=== PATIENT | male | born 1955 | race Caucasian/White ===

== ENCOUNTER 2020-06-20 00:36 | Emergency (ER) | payer MEDICAID, OTHER ==
[~2020-06-20] VITALS: Ht 193 cm; Wt 81.6 kg
[2020-06-20] MEDS ORDERED: OLANZAPINE 5 MG TABLET ONE (01:18)
--- NOTE | 2020-06-20 01:24 | NUR ---
PT AAOX4. AMBULATORY WITH STEADY GAIT. BIBSELF C/O SI WITH PLAN TO OVERDOSE ON MED. PT DENIES HI. PLACED ON MONITOR AND PULSE OX. VSS. AT BEDSIDE FOR EVAL. AWAITING ORDERS. PT PLACED IN GOWN, ON MONITOR, AND PULSE OX. BELONINGS PALCED IN LOCKER. SITTER AT BEDSIDE.
[2020-06-20] MEDS ORDERED: OLANZAPINE 5 MG TABLET PO ONE (01:30)
[2020-06-20 01:45] LABS: BASOPHILS # (AUTO) 0.1 /CMM (0.0-0.2); EOSINOPHILS % (AUTO) 1.9 % (0.0-6.0); HEMATOCRIT 44 % (39-51); HEMOGLOBIN 14.4 g/dL (13.5-17.5); LYMPHOCYTES # (AUTO) 2.3 /CMM (0.8-4.8); LYMPHOCYTES % (AUTO) 17.6 % (20.0-44.0); MEAN CORPUSCULAR HGB CONC 33 g/dl (31.0-36.0); MEAN CORPUSCULAR VOLUME 85 fL (80-96); MONOCYTES # (AUTO) 1.3 /CMM (0.1-1.30); MONOCYTES % (AUTO) 9.5 % (2.0-12.0); NEUTROPHILS # (AUTO) 9.3 /CMM (1.8-8.9); PLATELET COUNT (AUTO) 347 /CMM (150-450); RED BLOOD CELL COUNT(AUTO) 5.15 MIL/uL (4.5-6.0); WHITE BLOOD COUNT (AUTO) 13.3 K/uL (4.3-11.0)
[2020-06-20 01:50] LABS: APPEARANCE,URINE Clear (CLEAR); BILIRUBIN,URINE Negative (NEGATIVE); BLOOD, URINE Trace-intact Ery/uL (NEGATIVE); COLOR,URINE Yellow (YELLOW); KETONES,URINE Negative (NEGATIVE); LEUKOCYTE ESTERASE ,URINE Negative (NEGATIVE); NITRITE, URINE Negative (NEGATIVE); PROTEIN,URINE Negative (NEGATIVE); UGLUCOSE Negative (NEGATIVE); UROBILINOGEN,URINE 0.2 EU/dL (0.2)
[2020-06-20 01:52] LABS: CALCIUM, SERUM 9.2 mg/dL (8.5-10.1); CARBON DIOXIDE 29 mmol/L (21-32); CHLORIDE 103 mmol/L (98-107); GLUCOSE 96 mg/dL (74-106); POTASSIUM 4.5 mmol/L (3.5-5.1); SODIUM SERUM 137 mmol/L (136-145); UREA NITROGEN, BLOOD 21 mg/dL (7-18)
[2020-06-20 01:57] LABS: ALANINE AMINOTRANSFERASE 32 U/L (12-78); ALBUMIN 3.6 g/dL (3.4-5.0); ALCOHOL, BLOOD < 3 mg/dL (0-0); ALKALINE PHOSPHATASE 101 U/L (46-116); ASPARTATE AMINOTRANSFERASE 22 U/L (15-37); BILIRUBIN,DIRECT 0.1 mg/dL (0.0-0.2); BILIRUBIN,TOTAL 0.4 mg/dL (0.2-1.0); TOTAL PROTEIN, SERUM 7.5 g/dL (6.4-8.2)
[2020-06-20 01:59] LABS: ACETAMINOPHEN < 2 ug/ml (10-30); SALICYLATE 2.1 mg/dL (2.8-20.0)
[2020-06-20 02:03] LABS: BACTERIA,URINE None seen /HPF (None Seen); RBC,URINE 0-2 /HPF (0-2); SQUAMOUS EPITHELIAL CELL,UR Few /HPF (None Seen); WBC,URINE 0-2 /HPF (0-3)
--- NOTE | 2020-06-20 04:12 | NUR ---
PT ACCEPTED TO [facility] ACCEPTING MD: DR. ALCALA NUMBER FOR REPORT: [phone] [phone]
--- NOTE | 2020-06-20 04:14 | NUR ---
[facility] ETA [id number]
--- NOTE | 2020-06-20 04:23 | NUR ---
REPORT GIVEN TO DOLORES BAINS FROM [facility] FOR ANDREW
--- NOTE | 2020-06-20 07:09 | NUR ---
REPORT GIVEN TO [facility] FOR TRANSPORTATION ANDREW. PT TRANSFERRED TO [facility] IN STABLE CONDITION
[2020-06-20 07:10] VITALS: BP 141/79
== END 2020-06-20 07:10 ==
LOC: ER 00:38
DX: R45.851 Suicidal ideations (principal)
CPT/HCPCS: 36415; 80048; 80076; 80305; 80307; 80329; 81001; 85025; 99285; G0480; 81000-TC

== ENCOUNTER 2020-07-30 16:36 | Emergency (ER) | payer MEDICAID ==
[~2020-07-30] VITALS: Ht 188 cm; Wt 74.8 kg
--- NOTE | 2020-07-30 16:36 | NUR ---
PT BIB SELF C/O SI "I WANT TO OD ON PILLS" PT IS AAOX4, NOT IN RESPIRATORY DISTRESS, V/S STABLE, KEPT RESTED AND COMFORTABLE. WILL CONTINUE TO MONITOR. SITTER AT BEDSIDE.
--- NOTE | 2020-07-30 16:47 | NUR ---
PT SEEN AND EXAMINED BY SANDEE HENDRICKSON.
--- NOTE | 2020-07-30 16:59 | NUR ---
ER PHLEB AT BEDSIDE FOR BLOOD DRAW.
--- NOTE | 2020-07-30 17:00 | NUR ---
CALLED [facility].
[2020-07-30 17:13] LABS: APPEARANCE,URINE Clear (CLEAR); BILIRUBIN,URINE Negative (NEGATIVE); BLOOD, URINE Negative Ery/uL (NEGATIVE); COLOR,URINE Yellow (YELLOW); KETONES,URINE Negative (NEGATIVE); LEUKOCYTE ESTERASE ,URINE Negative (NEGATIVE); NITRITE, URINE Negative (NEGATIVE); PH,URINE 6.5 (5.0-8.0); PROTEIN,URINE Negative (NEGATIVE); UGLUCOSE Negative (NEGATIVE)
[2020-07-30 17:20] LABS: CALCIUM, SERUM 8.8 mg/dL (8.5-10.1); CARBON DIOXIDE 21 mmol/L (21-32); CHLORIDE 101 mmol/L (98-107); GLUCOSE 117 mg/dL (74-106); POTASSIUM 3.7 mmol/L (3.5-5.1); SODIUM SERUM 133 mmol/L (136-145); UREA NITROGEN, BLOOD 21 mg/dL (7-18)
[2020-07-30 17:32] LABS: BASOPHILS # (AUTO) 0.1 /CMM (0.0-0.2); BASOPHILS % (AUTO) 0.5 % (0.0-2.0); EOSINOPHILS % (AUTO) 1.3 % (0.0-6.0); HEMATOCRIT 39 % (39-51); HEMOGLOBIN 12.7 g/dL (13.5-17.5); LYMPHOCYTES # (AUTO) 2.3 /CMM (0.8-4.8); LYMPHOCYTES % (AUTO) 17.8 % (20.0-44.0); MEAN CORPUSCULAR HGB CONC 33 g/dl (31.0-36.0); MEAN CORPUSCULAR VOLUME 86 fL (80-96); MONOCYTES # (AUTO) 2.1 /CMM (0.1-1.30); MONOCYTES % (AUTO) 16.2 % (2.0-12.0); NEUTROPHILS # (AUTO) 8.4 /CMM (1.8-8.9); NEUTROPHILS % (AUTO) 64.2 % (43.0-81.0); PLATELET COUNT (AUTO) 260 /CMM (150-450); RED BLOOD CELL COUNT(AUTO) 4.55 MIL/uL (4.5-6.0); WHITE BLOOD COUNT (AUTO) 13.1 K/uL (4.3-11.0)
[2020-07-30 17:35] LABS: ALANINE AMINOTRANSFERASE 21 U/L (12-78); ALBUMIN 3.3 g/dL (3.4-5.0); ALKALINE PHOSPHATASE 93 U/L (46-116); ASPARTATE AMINOTRANSFERASE 15 U/L (15-37); BILIRUBIN,DIRECT 0.1 mg/dL (0.0-0.2); BILIRUBIN,TOTAL 0.4 mg/dL (0.2-1.0); SALICYLATE 3.4 mg/dL (2.8-20.0); TOTAL PROTEIN, SERUM 7.4 g/dL (6.4-8.2)
[2020-07-30 17:37] LABS: ACETAMINOPHEN < 2 ug/ml (10-30)
[2020-07-30 17:38] LABS: ALCOHOL, BLOOD < 3 mg/dL (0-0)
--- NOTE | 2020-07-30 17:56 | NUR ---
CALLED [facility] [phone] SUGGESTED IF CANDIDATE FOR SO OSIEL.
[2020-07-30] MEDS ORDERED: IV NS 0.9% 1,000 ML BAG IV ONE (18:00)
[2020-07-30 18:25] LABS: EOSINOPHILS % (MANUAL) 1 % (0-4); LYMPHOCYTES % (MANUAL) 19 % (16-48); MONOCYTES % (MANUAL) 8 % (0-11.0); NEUTROPHILS % (MANUAL) 72 (42-76)
--- NOTE | 2020-07-30 18:35 | NUR ---
CLINICALS AND FACESHEET FAXED TO [facility].
--- NOTE | 2020-07-30 20:06 | NUR ---
Patient is resting comfortably in bed. Easily aroused. VSS.
--- NOTE | 2020-07-30 21:31 | NUR ---
PT RESTING COMFORTABLY IN BED. VSS. NO ACUTE DISTRESS NOTED. SITTER AT BEDSIDE FOR SAFETY
--- NOTE | 2020-07-31 01:46 | NUR ---
PT ASLEEP IN BED. VSS. NO ACUTE DISTRESS NOTED. SITTER AT BEDSIDE FOR SAFETY
--- NOTE | 2020-07-31 03:13 | NUR ---
PT RESTING COMFORTABLY IN BED. VSS. NO ACUTE DISTRESS NOTED. SITTER AT BEDSIDE FOR SAFETY
--- NOTE | 2020-07-31 03:24 | NUR ---
SPOKE TO ELADIO FROM [facility] INTAKE NO BEDS AVAILABLE UNTIL AFTER 8AM.
--- NOTE | 2020-07-31 05:36 | NUR ---
PT RESTING COMFORTABLY, EASILY AROUSED, NO ACUTE DISTRESS NOTED, RESP EVEN AND UNLABORED. NO PAIN OR DISCOMFORT NOTED. VSS. SITTER AT BEDSIDE FOR SAFETY. CALL LIGHT WITHIN REACH. WILL CONTINUE TO MONITOR PT CLOSELY.
--- NOTE | 2020-07-31 06:32 | NUR ---
PT ASLEEP, EASILY AROUSED, NOT IN RESPIRATORY DISTRESS. VSS. SITTER AT BEDSIDE FOR SAFETY. CALL LIGHT WITHIN REACH. WILL CONTINUE TO MONITOR PT
--- NOTE | 2020-07-31 08:22 | NUR ---
MARGO LOMAXW CALLED TO F/U ON POSSIBLE TX TO [facility]
[2020-07-31 08:25] VITALS: BP 132/71
--- NOTE | 2020-07-31 08:35 | NUR ---
ACCEPTED AT [facility] BY DR. GEORGES PHONE NUMBER FOR REPORT [phone]
--- NOTE | 2020-07-31 08:41 | NUR ---
8:20am This SW followed up with Fernando at [facility] regarding this patient. Fernando notified this SW that [facility] is discharging this morning. Fernando will hold a bed for this patient.
--- NOTE | 2020-07-31 08:49 | NUR ---
[facility] TRANSPORT ARRANGED WITH KAREN, GOING TO [facility]. ETA 1030, SPOKE TO HUGO.
--- NOTE | 2020-07-31 09:55 | NUR ---
report given to cj pearce at [facility] cc. awaiting [facility]port ambulance.
--- NOTE | 2020-07-31 10:45 | NUR ---
transfered to [facility] cc in stable condition.
== END 2020-07-31 10:45 ==
LOC: ER 16:39
DX: R45.851 Suicidal ideations (principal)
CPT/HCPCS: 36415; 80048; 80076; 80305; 80307; 80329; 81001; 85025; 96360; 99285; G0480; J7030; 81000-TC